=== PATIENT | male | born 1945 | race Caucasian/White ===

== ENCOUNTER → 2017-02-02 | Outpatient (CLI) | payer MEDICARE | LOC: RAD 15:25 | PROVIDERS: ATTEND Internal Medicine | DX: M51.17 Intervertebral disc disorders with radiculopathy, lumbosacral region (principal); M53.9 Dorsopathy, unspecified | CPT/HCPCS: 72148 ==

== ENCOUNTER → 2017-03-09 | Outpatient (CLI) | payer MEDICARE ==
[2017-03-09 10:36] LABS: ABSOLUTE EOSINOPHILS # (AUTO) 0.2 10^3/uL (0.0-0.6); ABSOLUTE LYMPHOCYTES (AUTO) 1.2 10^3/uL (0.5-4.7); ABSOLUTE MONOCYTES (AUTO) 0.5 10^3/uL (0.1-1.4); BASOPHILS % (AUTO) 0.6 % (0-2); EOSINOPHILS % (AUTO) 3.6 % (0-6); HEMATOCRIT 40.3 % (37.9-51.0); HEMOGLOBIN 13.6 g/dL (13.5-17.0); HGB HCT DIFFERENCE 0.5; LYMPHOCYTES % (AUTO) 20.3 % (13-45); MEAN CORPUSCULAR HEMOGLOBIN 29.7 pg (27.0-33.4); MEAN CORPUSCULAR HGB CONC 33.8 g/dL (32.0-36.0); MEAN CORPUSCULAR VOLUME 88 fl (80-97); MONOCYTES % (AUTO) 8.3 % (3-13); RED BLOOD COUNT 4.59 10^6/uL (4.35-5.55); SEGMENTED NEUTROPHILS % (AUTO) 67.2 % (42-78)
[2017-03-09 10:42] LABS: APPEARANCE,URINE SLIGHTLY-CLOUDY; BILIRUBIN,URINE NEGATIVE (NEGATIVE); GLUCOSE, URINE 50 mg/dL (NEGATIVE); KETONES,URINE TRACE mg/dL (NEGATIVE); LEUKOCYTE ESTERASE,URINE NEGATIVE (NEGATIVE); NITRITE,URINE NEGATIVE (NEGATIVE); PROTEIN,URINE NEGATIVE (NEGATIVE); URINE SPECIFIC GRAVITY 1.009
[2017-03-09 11:03] LABS: ANION GAP 12 (5-19); BLOOD UREA NITROGEN 8 mg/dL (7-20); CALCIUM 9.3 mg/dL (8.4-10.2); CARBON DIOXIDE 23 mmol/L (22-30); CHLORIDE 105 mmol/L (98-107); CREATININE RESULT 0.62 mg/dL (0.52-1.25); GLUCOSE 192 mg/dL (75-110); POTASSIUM 4.4 mmol/L (3.6-5.0)
--- NOTE | 2017-03-09 12:00 | RADIOLOGY REPORT (SQ) ---
EXAM DESCRIPTION: CHEST PA/LATERAL COMPLETED DATE/TIME: 03/09/2017 11:51 am REASON FOR STUDY: PRE OP COMPARISON: None. EXAM PARAMETERS: NUMBER OF VIEWS: two views TECHNIQUE: Digital Frontal and Lateral radiographic views of the chest acquired. RADIATION DOSE: NA LIMITATIONS: none FINDINGS: LUNGS AND PLEURA: No opacities, masses or pneumothorax. No pleural effusion. MEDIASTINUM AND HILAR STRUCTURES: No masses or contour abnormalities. HEART AND VASCULAR STRUCTURES: Heart normal size. No evidence for failure. BONES: No acute findings. HARDWARE: CABG. OTHER: No other significant finding. IMPRESSION: No acute findings in the chest. TECHNICAL DOCUMENTATION: JOB ID: [id number] [employer]- All Rights Reserved
--- NOTE | 2017-03-09 17:07 | EKG REPORT ---
SEVERITY:- NORMAL ECG - SINUS RHYTHM : Confirmed by: Flavio Champion 09-Mar-2017 17:06:29
== END ==
LOC: OD 09:46
PROVIDERS: ATTEND Orthopaedic Surgery
DX: Z01.810 Encounter for preprocedural cardiovascular examination (principal); Z01.812 Encounter for preprocedural laboratory examination; Z01.818 Encounter for other preprocedural examination; E11.9 Type 2 diabetes mellitus without complications; Z79.4 Long term (current) use of insulin
CPT/HCPCS: 36415; 71020; 80048; 81001; 83036; 85025; 87070; 93005; 93010

== ENCOUNTER 2017-03-28 05:26 | Day surgery (SDC) | payer MEDICARE ==
[~2017-03-28 05:26] MED LIST: CEFAZOLIN 2 GM/D5W RTU 2 GM/50 ML RTUPB IV PRN; LACTATED RINGERS 1000 ML IV PRN; LIDOCAINE 0.5% INJ-PF (5 MG/ML) 50 ML SDV SUBCUT PRN
[2017-03-28] MEDS ORDERED: DEXMEDETOMIDINE INJ 80 MCG/20 ML VIAL IV ONE (07:12)
[2017-03-28] MEDS ORDERED: PROPOFOL INJ 200 MG/20 ML VIAL IV ONE (07:12)
[2017-03-28] MEDS ORDERED: MIDAZOLAM 2 MG/2 ML INJ ONE (07:12)
[2017-03-28] MEDS ORDERED: FENTANYL CITRATE INJ/PF 250 MCG/5 ML AMPULE ONE (07:12)
[2017-03-28] MEDS ORDERED: EPHEDRINE SULFATE INJ 50 MG/1 ML AMPULE ONE (07:13)
[2017-03-28] MEDS ORDERED: KETAMINE HCL INJ 500 MG/10 ML VIAL ONE (07:14)
[2017-03-28] MEDS ORDERED: MEPERIDINE HCL/PF INJ 25 MG/1 ML DISP.SYRIN IV PRN (08:26)
[2017-03-28] MEDS ORDERED: DIPHENHYDRAMINE HCL 50 MG/ML VIAL IV PRN (08:26)
[2017-03-28] MEDS ORDERED: PROMETHAZINE HCL INJ 25 MG/1 ML VIAL IV PRN ×2 (08:26)
[2017-03-28] MEDS ORDERED: OXYCODONE-ACETAMINOPHEN 5-325 MG TABLET PO PRN ×2 (08:26)
[2017-03-28] MEDS ORDERED: MORPHINE SULFATE 10 MG/ML INJ IV PRN (08:26)
[2017-03-28] MEDS ORDERED: FENTANYL CITRATE INJ/PF 100 MCG/2 ML AMPUL IV PRN ×3 (08:26)
[2017-03-28] MEDS ORDERED: BUPIVACAINE HCL 0.5 % INJ/PF 30 ML SDV ONE (08:42)
[2017-03-28] MEDS ORDERED: BACITRACIN INJ 50,000 UNIT VIAL ONE (10:21)
[2017-03-28] MEDS ORDERED: BUPIVACAINE INJ/PF LIPOSOME/PF 266 MG/20 ML SDV ONE (10:21)
[2017-03-28] MEDS ORDERED: ONDANSETRON HCL INJ/PF 4 MG/2 ML SDV IV PRN (10:54)
[2017-03-28] MEDS ORDERED: OXYCODONE HCL IR 5 MG TABLET PO PRN (11:00)
[2017-03-28] MEDS ORDERED: METHOCARBAMOL INJ/PF 1000 MG/10 ML SDV IV ONE (11:15)
--- NOTE | 2017-03-28 11:44 | OPERATIVE REPORT E ---
Operative Report NAME: PAMELA MCGRATH : 1945 AGE: 71Y DATE OF SURGERY: 03/28/2017 ROOM: PREOPERATIVE DIAGNOSES: 1. Severe stenosis L4-L5 2. Herniated nucleus pulposus L4-L5. 3. Radiculitis L4-L5 bilaterally. 4. Degenerative disk disease. 5. Back pain. POSTOPERATIVE DIAGNOSES: 1. Severe stenosis L4-5 2. Herniated nucleus pulposus L4-5. 3. Radiculitis L4-5 bilaterally. 4. Degenerative disk disease. 5. Back pain. PROCEDURE: 1. L4 partial laminectomy. 2. L4-L5 left-sided microdiskectomy. ATTENDING PHYSICIAN: AMAN TAI M.D. CODE MACHINE OPERATOR: Caleb De Paz Physician Convertible Power Shovel Operator ANESTHESIA: General endotracheal intubation. ESTIMATED BLOOD LOSS: 375 mL. Patient was given back 200 mL in Cell Saver. INDICATIONS: Patient is a 71-year-old male with bilateral lower extremity numbness and weakness, difficulty in ambulation, and significant back pain. After discussion with the patient of the risks, indications, and alternatives including the risk of infection and bleeding, damage to nerves or blood vessels, the risk of dural tear and spinal headaches, the risk of continued back pain, the risk of needing further surgery, the patient understood these risks and wished to pursue the surgical intervention. OPERATIVE TECHNIQUE: The patient was brought into the room, placed under anesthesia, placed in the prone position on the on the radiolucent table with a Willian frame attachment. The middle and lower back were prepped and draped in the usual sterile fashion. The Willian frame was turned up to open up the interspace posteriorly. Under lateral C-arm fluoroscopy the skin is marked at L4-L5 and after completion of prepping and draping, a midline incision was carried down through the skin measuring approximately 2.5 inches. Dissection was carried down into the lumbodorsal fascia and dorsal fascia was incised on both sides of the spinous processes at L4-L5 and down to the lamina of L4 and L5. The posterior interspace was marked at L4-L5 using a Arun and lateral C-arm fluoroscopy is used to verify that level. Then, the spinous process at L4 is resected and the microscope is brought and under the microscope and through the assistance of Caleb De Paz and using the reyna and Kerrison, partial laminectomy was performed bilaterally and significant ligamentum flavum hypertrophy is resected and lateral recess is decompressed on the left side identifying the notable sizeable disk herniation. An annulotomy is performed under the microscope and many small and large degenerative piece of disk and end plate are resected which were occupying the majority of the dural space. Upon decompressing those pieces, the dura was found to rest more ventrally into position. Patient tolerated the procedure well. After that a Valsalva maneuver is performed by anesthesia noting that we irrigated the disk space to make sure there was no other loose pieces. Those were resected as well and then the Valsalva maneuver showed no epidural bleeders. No significant bleeding. No dural tear. No cerebral spinal fluid leakage. After that the wound is irrigated with a liter of bacitracin and irrigation. Exparel 1.3% 20 mL mixed with 20 mL of 0.5 Marcaine plain is injected into the deep and superficial soft tissues and the fascia is then reapproximated with 0 Vicryl, subcutaneous with 2-0 Vicryl, and the skin with subcuticular 3-0 Monocryl closure. The wounds are dressed in Benzoin, Steri-Strips, 4 x 4, and tape. The patient tolerated the procedure well. CONDITION: Stable. DISPOSITION: To recovery room. Please note this procedure could not have been done without Caleb De Paz in suction and retraction and working under the microscope. DICTATING PHYSICIAN: AMAN TAI M.D. [id number] PHY#: [id number] ID: [id number] JOB#: [id number] ACCT: [id number] cc:AMAN TAI M.D. >
[2017-03-28] MEDS ORDERED: SUCCINYLCHOLINE CHLORIDE INJ 200 MG/10 ML VIAL ONE (13:26)
[2017-03-28] MEDS ORDERED: KETOROLAC TROMETHAMINE 60 MG/2 ML SDV ONE (13:26)
[2017-03-28] MEDS ORDERED: DEXAMETHASONE SOD PHOSPHATE INJ 4 MG/1 ML VIAL ONE (13:26)
[2017-03-28] MEDS ORDERED: ONDANSETRON HCL INJ/PF 4 MG/2 ML SDV ONE (13:26)
[2017-03-28] MEDS ORDERED: LIDOCAINE 2% INJ-PF (20 MG/ML) 10 ML AMPUL ONE (13:26)
[2017-03-28] MEDS ORDERED: NEOSTIGMINE METHYLSULFATE 10 MG/10 ML VIAL ONE (13:26)
[2017-03-28] MEDS ORDERED: GLYCOPYRROLATE INJ 0.4 MG/2 ML VIAL ONE (13:26)
[2017-03-28] MEDS ORDERED: ROCURONIUM BROMIDE INJ 50 MG/5 ML VIAL IV ONE (13:26)
--- NOTE | 2017-03-28 13:28 | RADIOLOGY REPORT (SQ) ---
EXAM DESCRIPTION: NO CHG FLUORO; L SPINE 2 VIEWS COMPLETED DATE/TIME: 03/28/2017 1:00 pm REASON FOR STUDY: L 4-5 COMPARISON: None. FLUOROSCOPY TIME: Not recorded Images saved to PACS LIMITATIONS: None. PROCEDURE: 2 images were obtained with the C-arm. FINDINGS: On the 1st image a forceps delcid the spinous process of L4. On the 2nd image an instrumen t is directed toward the L4-5 disc space. IMPRESSION: Intraoperative images. COMMENT: PQRS 6045F: Fluoroscopy time of the procedure is documented in the report. TECHNICAL DOCUMENTATION: JOB ID: [id number] [employer]- All Rights Reserved
--- NOTE | 2017-03-28 13:28 | RADIOLOGY REPORT (SQ) ---
EXAM DESCRIPTION: NO CHG FLUORO; L SPINE 2 VIEWS COMPLETED DATE/TIME: 03/28/2017 1:00 pm REASON FOR STUDY: L 4-5 COMPARISON: None. FLUOROSCOPY TIME: Not recorded Images saved to PACS LIMITATIONS: None. PROCEDURE: 2 images were obtained with the C-arm. FINDINGS: On the 1st image a forceps delcid the spinous process of L4. On the 2nd image an instrumen t is directed toward the L4-5 disc space. IMPRESSION: Intraoperative images. COMMENT: PQRS 6045F: Fluoroscopy time of the procedure is documented in the report. TECHNICAL DOCUMENTATION: JOB ID: [id number] [employer]- All Rights Reserved
[2017-03-28 13:43] VITALS: BP 124/58
== END 2017-03-28 12:55 | disposition home or self-care (01) ==
LOC: OROUT 05:26 → EDSTATUS 07:30 → OROUT 12:55
PROVIDERS: ATTEND Orthopaedic Surgery
PROC: 0ST20ZZ Resection of Lumbar Vertebral Disc, Open Approach (ICD-10-PCS; principal; 2017-03-28 07:30)
DX: M54.16 Radiculopathy, lumbar region (principal); M48.06 Spinal stenosis, lumbar region; M51.26 Other intervertebral disc displacement, lumbar region; M51.36 Other intervertebral disc degeneration, lumbar region; E11.9 Type 2 diabetes mellitus without complications; I25.10 Atherosclerotic heart disease of native coronary artery without angina pectoris; I10 Essential (primary) hypertension; M19.90 Unspecified osteoarthritis, unspecified site; E66.9 Obesity, unspecified; Z79.4 Long term (current) use of insulin; Z68.32 Body mass index [BMI] 32.0-32.9, adult
CPT/HCPCS: 82962; 72100; 63030; J2250; J3490 ×5; J1100; J1885; J3010; J2800; J0330; J2405; J2704; J0690; C9290; 630

== ENCOUNTER 2017-03-29 23:50 | Emergency (ER) | payer MEDICARE ==
--- NOTE | 2017-03-30 00:49 | ER Document Report ---
ED General - General Chief Complaint: Back Injury Stated Complaint: WEAK LEGS Time Seen by Provider: 03/29/17 23:54 Notes: Patient is a 71-year-old male with a laminectomy and microdiscectomy performed on 03/28 who presents after he had a mechanical fall earlier this morning landing onto his buttocks. Patient states that since that time he has had increased pain to the low back and increased difficulty with ambulation although notes that he still able to do so. He came to the emergency department tonight as he was unable to get up into his bed after walking there using his walker. Notes that when he was loaded into the structure in the ambulance he developed bilateral lower extremity paresthesias without any focal weakness or numbness. He denies any bowel or bladder incontinence. No urinary retention. Notes of the paresthesias are to the inner thighs bilaterally. Nothing improves or worsens his symptoms. He is taking gabapentin for his pain. He has not contacted his surgeon regarding today's episode. TRAVEL OUTSIDE OF THE [place] IN LAST 30 DAYS: No - Related Data Allergies/Adverse Reactions: No Known Allergies Allergy (Verified 03/30/17 00:18) Past Medical History - General Information source: Patient - Social History Smoking Status: Never Smoker Chew tobacco use (# tins/day): No Frequency of alcohol use: None Drug Abuse: None Lives with: Spouse/Significant other Family History: Reviewed & Not Pertinent Patient has suicidal ideation: No Patient has homicidal ideation: No - Past Medical History Cardiac Medical History: Reports: Hx Coronary Artery Disease, Hx Hypercholesterolemia, Hx Hypertension Denies: Hx Atrial Fibrillation, Hx Congestive Heart Failure, Hx Heart Attack , Hx Peripheral Vascular Disease, Hx Pulmonary Embolism, Hx Heart Murmur Pulmonary Medical History: Denies: Hx Asthma, Hx Bronchitis, Hx COPD, Hx Pneumonia, Hx Respiratory Failure, Hx Sleep Apnea, Hx Tuberculosis Neurological Medical History: Reports: Hx Cerebrovascular Accident - Right- sided hemiaplagia. Denies: Hx Seizures Endocrine Medical History: Reports: Hx Diabetes Mellitus Type 2. Denies: Hx Graves' Disease, Hx Hyperthyroidism, Hx Hypothyroidism Renal/ Medical History: Denies: Hx Peritoneal Dialysis Malignancy Medical History: Denies Hx Lung Cancer GI Medical History: Reports: Hx Gastroesophageal Reflux Disease, Hx Hiatal Hernia, Hx Ulcer. Denies: Hx Crohn's Disease, Hx Hepatitis, Hx Irritable Bowel , Hx Liver Failure Musculoskeltal Medical History: Reports Hx Arthritis, Denies Hx Fibromyalgia, Denies Hx Muscular Dystrophy Psychiatric Medical History: Reports: Hx Depression, Hx Post Traumatic Stress Disorder Denies: Hx Bipolar Disorder, Hx Schizophrenia Traumatic Medical History: Reports: Hx Fractures - RT THIRD TOE Infectious Medical History: Denies: Hx Hepatitis Past Surgical History: Reports: Hx Cardiac Catheterization, Hx Cardiac Surgery - cabg, stents, Hx Coronary Artery Bypass Graft - QUAD, Hx Open Heart Surgery - 1988, Hx Orthopedic Surgery - anterior neck dic repair , lower back lumber, Hx Tonsillectomy. Denies: Hx Appendectomy, Hx Bowel Surgery, Hx Cholecystectomy, Hx Colostomy, Hx Gastric Bypass Surgery, Hx Herniorrhaphy, Hx Pacemaker - Immunizations Hx Pneumococcal Vaccination: 07/12/15 Review of Systems - Review of Systems Notes: Constitutional: Negative for fever. HENT: Negative for sore throat. Eyes: Negative for visual changes. Cardiovascular: Negative for chest pain. Respiratory: Negative for shortness of breath. Gastrointestinal: Negative for abdominal pain, vomiting or diarrhea. Genitourinary: Negative for dysuria. Musculoskeletal: Positive for back pain. Skin: Negative for rash. Neurological: Negative for headaches, weakness or numbness. 10 point ROS negative except as marked above and in HPI. Physical Exam - Vital signs Vitals: Temp Pulse Resp BP Pulse Ox 100.7 F H 74 20 134/49 H 98 03/30/17 00:14 03/30/17 00:14 03/30/17 00:14 03/30/17 00:14 03/30/17 00:14 Interpretation: Febrile Notes: PHYSICAL EXAMINATION: GENERAL: Well-appearing, well-nourished and in no acute distress. HEAD: Atraumatic, normocephalic. EYES: Pupils equal round and reactive to light, extraocular movements intact, sclera anicteric, conjunctiva are normal. ENT: nares patent, oropharynx clear without exudates. Moist mucous membranes. NECK: Normal range of motion, supple without lymphadenopathy LUNGS: Breath sounds clear to auscultation bilaterally and equal. No wheezes rales or rhonchi. HEART: Regular rate and rhythm without murmurs ABDOMEN: Soft, nontender, normoactive bowel sounds. No guarding, no rebound. No masses appreciated. EXTREMITIES: Normal range of motion, no pitting or edema. No cyanosis. Back: There is a midline lumbar incision without any evidence of opening, Steri- Strips are in place. NEUROLOGICAL: 5 out of 5 strength both distally and proximally bilateral lower extremities. 2+ patellar reflexes bilaterally. No clonus. Sensation grossly intact in the bilateral lower extremities. PSYCH: Normal mood, normal affect. SKIN: Warm, Dry, normal turgor, no rashes or lesions noted. Course - Re-evaluation Re-evalutation: 03/30/17 01:02 Patient presents with difficulty ambulating, paresthesias to the bilateral lower extremities after a recent laminectomy and microdiscectomy in the lumbar spine on 03/28. Patient has absolutely no focal neurologic deficits on examination. He has 5 out of 5 strength both distally and proximally. 2+ patellar reflexes bilaterally. No clonus. Sensory is intact in all distributions bilaterally. He has had no bowel or bladder incontinence. Denies any urinary retention and has gone to the bathroom without difficulty since the fall. The wound on the back is intact, Steri-Strips are unmoved and there is no evidence of an opening of the wound. Routine vitals here do show a temperature of 100.5 which would not be unexpected within 24 hours of surgery. There is no evidence of infection to the site without any purulent drainage or swelling. I have asked the family to please recheck the temperature tomorrow and discuss with the surgeon so that they are aware of this low-grade postoperative temperature. I do not believe there is any indication for further imaging or labs at this time. I have discussed this case with the physician regional operations director for the group, Grisel Ann. She is in agreement that based on patient's history, neurologic exam and the appearance of the surgical wound there is no indication for further imaging or emergent evaluation by the surgeon. I have discussed this with the family at the left at the bedside. Patient will be provided medical transport home due to the 's concerns about her ability to assist the patient with ambulation. - Vital Signs Vital signs: Temp Pulse Resp BP Pulse Ox 100.7 F H 74 20 134/49 H 98 03/30/17 00:14 03/30/17 00:14 03/30/17 00:14 03/30/17 00:14 03/30/17 00:14 Discharge - Discharge Clinical Impression: Low back pain Qualifiers: Chronicity: acute Back pain laterality: bilateral Sciatica presence: without sciatica Qualified Code(s): M54.5 - Low back pain Fall Qualifiers: Encounter type: initial encounter Qualified Code(s): W19.XXXA - Unspecified fall, initial encounter Condition: Good Disposition: HOME, SELF-CARE Additional Instructions: Please contact your surgeon in the AM regarding boy's ED visit. Please return to the emergency department immediately if you lose control of your bowel or bladder, your unable to urinate, you develop weakness or loss of sensation in one or both legs, or any other symptoms that are concerning to you. Referrals: MARK MALDONADO MD [Primary Care Provider] - Follow up as needed
[2017-03-30 01:51] VITALS: BP 143/56
== END 2017-03-30 02:27 | disposition home or self-care (01) ==
LOC: ER 23:50
DX: M54.5 Low back pain (principal); W17.89XA Other fall from one level to another, initial encounter; Z98.890 Other specified postprocedural states; R50.9 Fever, unspecified; R20.9 Unspecified disturbances of skin sensation; I25.10 Atherosclerotic heart disease of native coronary artery without angina pectoris; I10 Essential (primary) hypertension; E11.9 Type 2 diabetes mellitus without complications; Z95.1 Presence of aortocoronary bypass graft; Z98.61 Coronary angioplasty status
CPT/HCPCS: 99284

== ENCOUNTER 2017-03-30 13:09 | Emergency (ER) | payer MEDICARE ==
--- NOTE | 2017-03-30 13:34 | ER Document Report ---
ED Extremity Problem, Lower - General Mode of Arrival: Medic Information source: Patient TRAVEL OUTSIDE OF THE [place] IN LAST 30 DAYS: No - HPI Patient complains to provider of: Other - weakness Associated symptoms: Other - See above <JACINDA CHEEK - Last Filed: 03/30/17 13:42> <MOY DOMINGUEZ - Last Filed: 03/30/17 15:23> <ALONSO MCKEON - Last Filed: 03/30/17 21:16> - General Chief Complaint: Weakness Stated Complaint: weakness Notes: Patient is a 71 year old male, with a past medical history including laminectomy and microdiscectomy performed on 03/28, who presents to the emergency department via EMS for weakness in his legs. Patient was seen here yesterday for the same complaint. Patient fell on his buttocks yesterday morning and had a second fall last night after he lost the strength in his legs. Patient went home early this morning, his surgeon Dr. Miller called today and told him he needed an emergent MRI. Patient also complains of numbness in his legs. (JACINDA CHEEK) - Related Data Allergies/Adverse Reactions: No Known Allergies Allergy (Verified 03/30/17 00:18) Past Medical History - General Information source: Patient - Social History Smoking Status: Never Smoker Chew tobacco use (# tins/day): No Frequency of alcohol use: None Drug Abuse: None Family History: Reviewed & Not Pertinent Patient has suicidal ideation: No Patient has homicidal ideation: No - Past Medical History Cardiac Medical History: Reports: Hx Coronary Artery Disease, Hx Hypercholesterolemia, Hx Hypertension Neurological Medical History: Reports: Hx Cerebrovascular Accident - Right- sided hemiaplagia Endocrine Medical History: Reports: Hx Diabetes Mellitus Type 2 GI Medical History: Reports: Hx Gastroesophageal Reflux Disease, Hx Hiatal Hernia, Hx Ulcer Musculoskeltal Medical History: Reports Hx Arthritis Psychiatric Medical History: Reports: Hx Depression, Hx Post Traumatic Stress Disorder Traumatic Medical History: Reports: Hx Fractures - RT THIRD TOE Past Surgical History: Reports: Hx Cardiac Catheterization, Hx Cardiac Surgery - cabg, stents, Hx Coronary Artery Bypass Graft - QUAD, Hx Open Heart Surgery - 1988, Hx Orthopedic Surgery - anterior neck dic repair , lower back lumber, Hx Tonsillectomy - Immunizations Hx Diphtheria, Pertussis, Tetanus Vaccination: Yes Hx Pneumococcal Vaccination: 07/12/15 <JACINDA CHEEK - Last Filed: 03/30/17 13:42> Review of Systems - Review of Systems Constitutional: See HPI, Weakness EENT: No symptoms reported Cardiovascular: No symptoms reported Respiratory: No symptoms reported Gastrointestinal: No symptoms reported Genitourinary: No symptoms reported Male Genitourinary: No symptoms reported Musculoskeletal: No symptoms reported Skin: No symptoms reported Hematologic/Lymphatic: No symptoms reported Neurological/Psychological: See HPI, Numbness -: Yes All other systems reviewed and negative <CHEEKJACINDA - Last Filed: 03/30/17 13:42> Physical Exam - Vital signs Interpretation: Normal - General General appearance: Appears well, Alert - HEENT Head: Normocephalic, Atraumatic - Respiratory Respiratory status: No respiratory distress Chest status: Nontender Breath sounds: Normal Chest palpation: Normal - Cardiovascular Rhythm: Regular Heart sounds: Normal auscultation Murmur: No - Extremities General upper extremity: Normal inspection General lower extremity: Edema - chronic pitting edema bilaterally - Neurological Neuro grossly intact: Yes Cognition: Normal Orientation: AAOx4 [place] Coma Scale Eye Opening: Spontaneous Patti Coma Scale Verbal: Oriented Patti Coma Scale Motor: Obeys Commands Patti Coma Scale Total: 15 Speech: Normal Additional motor exam normals: Dorsiflexion - normal Sensory: Other - altered sensation to medial aspect of calves and thighs - Psychological Associated symptoms: Normal affect, Normal mood - Skin Skin Temperature: Warm Skin Moisture: Dry Skin Color: Normal <HAMJACINDA - Last Filed: 03/30/17 13:42> Course - Laboratory Result Diagrams: 03/30/17 14:00 03/30/17 14:50 <MOY DOMINGUEZ - Last Filed: 03/30/17 15:23> - Laboratory Result Diagrams: 03/30/17 14:00 03/30/17 14:50 <ALONSO MCKEON - Last Filed: 03/30/17 21:16> - Vital Signs Vital signs: Temp Pulse Resp BP Pulse Ox 98.7 F 85 16 168/94 H 94 03/30/17 20:59 03/30/17 20:59 03/30/17 20:59 03/30/17 20:59 03/30/17 20:59 - Laboratory Laboratory results interpreted by me: 03/30/17 03/30/17 03/30/17 14:00 14:15 14:50 Hgb 13.2 L Lymphocytes % 11.7 L Sodium 136.0 L Glucose 193 H Total Bilirubin 1.7 H Total Protein 5.9 L Urine Protein 30 H Urine Glucose (UA) 150 H Urine Ketones 25 H Discharge <JACINDA CHEEK - Last Filed: 03/30/17 13:42> <MOY DOMINGUEZ - Last Filed: 03/30/17 15:23> <ALONSO MCKEON - Last Filed: 03/30/17 21:16> - Discharge Clinical Impression: Paresthesia of both lower extremities Low back pain Qualifiers: Chronicity: acute Back pain laterality: unspecified Sciatica presence: with sciatica Sciatica laterality: sciatica laterality unspecified Qualified Code(s) : M54.40 - Lumbago with sciatica, unspecified side Condition: Stable Disposition: HOME, SELF-CARE Additional Instructions: Follow-up with your orthopedic surgeon, Dr. Obregon. Scribe Documentation - Scribe Written by Nel:: nel Lazo, 03/30/17, 1929 acting as scribe for DrMason:: Leticia <JACINDA CHEEK - Last Filed: 03/30/17 13:42>
[2017-03-30 14:29] LABS: ABSOLUTE BASOPHILS # (AUTO) 0.1 10^3/uL (0.0-0.2); ABSOLUTE LYMPHOCYTES (AUTO) 1.1 10^3/uL (0.5-4.7); ABSOLUTE MONOCYTES (AUTO) 0.9 10^3/uL (0.1-1.4); BASOPHILS % (AUTO) 0.6 % (0-2); EOSINOPHILS % (AUTO) 0.3 % (0-6); HEMATOCRIT 39.5 % (37.9-51.0); HEMOGLOBIN 13.2 g/dL (13.5-17.0); HGB HCT DIFFERENCE 0.1; LYMPHOCYTES % (AUTO) 11.7 % (13-45); MEAN CORPUSCULAR HEMOGLOBIN 29.3 pg (27.0-33.4); MEAN CORPUSCULAR HGB CONC 33.3 g/dL (32.0-36.0); MEAN CORPUSCULAR VOLUME 88 fl (80-97); MONOCYTES % (AUTO) 10.4 % (3-13); RED BLOOD COUNT 4.49 10^6/uL (4.35-5.55); WHITE BLOOD COUNT 9.1 10^3/uL (4.0-10.5)
[2017-03-30 14:48] LABS: APPEARANCE,URINE CLEAR; BILIRUBIN,URINE NEGATIVE (NEGATIVE); GLUCOSE, URINE 150 mg/dL (NEGATIVE); KETONES,URINE 25 mg/dL (NEGATIVE); LEUKOCYTE ESTERASE,URINE NEGATIVE (NEGATIVE); NITRITE,URINE NEGATIVE (NEGATIVE); PROTEIN,URINE 30 mg/dL (NEGATIVE); URINE SPECIFIC GRAVITY 1.017; UROBILINOGEN,URINE NEGATIVE mg/dL (<2.0)
[2017-03-30 14:49] LABS: RBC,URINE NONE SEEN /HPF; WBC,URINE NONE SEEN /HPF
[2017-03-30 15:16] LABS: ALANINE AMINOTRANSFERASE 40 U/L (21-72); ALBUMIN 3.5 g/dL (3.5-5.0); ALKALINE PHOSPHATASE 48 U/L (38-126); ANION GAP 10 (5-19); ASPARTATE AMINO TRANSFERASE 20 U/L (17-59); BILIRUBIN,DIRECT 0.3 mg/dL (0.0-0.4); BILIRUBIN,TOTAL 1.7 mg/dL (0.2-1.3); BLOOD UREA NITROGEN 9 mg/dL (7-20); CALCIUM 8.6 mg/dL (8.4-10.2); CARBON DIOXIDE 25 mmol/L (22-30); CHLORIDE 101 mmol/L (98-107); GLUCOSE 193 mg/dL (75-110); POTASSIUM 4.4 mmol/L (3.6-5.0); TOTAL PROTEIN 5.9 g/dL (6.3-8.2)
--- NOTE | 2017-03-30 16:50 | RADIOLOGY REPORT (SQ) ---
EXAM DESCRIPTION: L SPINE 2 VIEWS COMPLETED DATE/TIME: 03/30/2017 4:40 pm REASON FOR STUDY: MRI requests to look for hardware COMPARISON: None. NUMBER OF VIEWS: Two views. TECHNIQUE: AP and lateral radiographic images acquired of the lumbar spine. LIMITATIONS: None. FINDINGS: MINERALIZATION: Osteopenia. SEGMENTATION: Normal. No transitional anatomy. ALIGNMENT: Normal. VERTEBRAE: Maintained height. No fracture or worrisome bone lesion. DISCS: The disc spaces L3-4 and L4-5 are narrowed. Osteophytes are present at these levels. POSTERIOR ELEMENTS: Hypertrophic facet changes are present from L3-S1. HARDWARE: None in the spine. PARASPINAL SOFT TISSUES: Normal. PELVIS: Intact as visualized. No fractures or worrisome bone lesions. SI joints intact. OTHER: No other significant finding. IMPRESSION: Degenerative disc disease and spondylosis with facet arthropathy TECHNICAL DOCUMENTATION: JOB ID: [id number]- All Rights Reserved
--- NOTE | 2017-03-30 18:12 | RADIOLOGY REPORT (SQ) ---
EXAM DESCRIPTION: MRI LUMBAR SPINE COMBO COMPLETED DATE/TIME: 03/30/2017 5:26 pm REASON FOR STUDY: recent surg, fall, weak and numb COMPARISON: 02/02/2017 TECHNIQUE: Sagittal and Axial imaging includes T1, T1 post gadolinium, T2, STIR and gradient echo se quences. Coronal T2/HASTE imaging. CONTRAST TYPE AND DOSE: 20 mL Multihance. RENAL FUNCTION: GFR > 60. LIMITATIONS: None. FINDINGS: Since the prior examination there has been interval resection of the 11 mm left paracentra l disc protrusion that was seen at the L4-5 level. Expected Postsurgical changes and enhancement fro m prior partial discectomy around this level are present in the epidural space without a defined foca l epidural fluid collection. Reactive marrow changes at the L4-5 level were present on the preoperat rodrigo scan. No significant fluid signal is present at the L4-5 disc. Posterior Postsurgical changes f rom spinous process and laminar resection is present at the L4 level. Remaining degenerative changes and stenoses at the L3-4, L4-5 and L5-S1 levels appears otherwise similar to the preoperative study. OTHER: No other significant findings. IMPRESSION: Since the prior examination there has been interval resection of the 11 mm left paracent ral disc protrusion that was seen at the L4-5 level. Expected Postsurgical changes and enhancement f rom prior partial discectomy around this level are present in the epidural space without a defined fo elda epidural fluid collection. Reactive marrow changes at the L4-5 level were present on the preoper ative scan. No significant fluid signal is present at the L4-5 disc. Posterior Postsurgical changes from spinous process and laminar resection is present at the L4 level. Remaining degenerative luna es and stenoses at the L3-4, L4-5 and L5-S1 levels appears otherwise similar to the preoperative stud y. Infection cannot be excluded on an imaging basis and should be further interrogated clinically if there is high suspicion. TECHNICAL DOCUMENTATION: JOB ID: [id number]- All Rights Reserved
--- NOTE | 2017-03-30 21:14 | ER Document Report ---
Doctor's Note Notes: 03/30/17 21:13 I received a call from this patient's orthopedic surgeon who had received the MRI results from radiology. I also reviewed the MRI report. Based upon this conversation and my review of the report, the patient does not have an acute process that will result in a permanent neurologic deficit or injury. Basically the report shows a nonacute, normal appearing postsurgical MRI There being no indications for admitting the patient, he is going to be discharged home. Transport will be arranged to take him home.
[2017-03-30 23:00] VITALS: BP 117/44
== END 2017-03-30 23:20 | disposition home or self-care (01) ==
LOC: ER 13:09
DX: R20.8 Other disturbances of skin sensation (principal); M54.40 Lumbago with sciatica, unspecified side; R53.1 Weakness; I25.10 Atherosclerotic heart disease of native coronary artery without angina pectoris; E78.00 Pure hypercholesterolemia, unspecified; I10 Essential (primary) hypertension; I69.951 Hemiplegia and hemiparesis following unspecified cerebrovascular disease affecting right dominant side; E11.9 Type 2 diabetes mellitus without complications; Z95.1 Presence of aortocoronary bypass graft
CPT/HCPCS: 99285; 36415; 82962; 85025; 80053; 81001; 72158; 72100; A9577

== ENCOUNTER → 2017-11-30 | Outpatient (CLI) | payer MEDICARE ==
[2017-11-30 09:04] LABS: ABSOLUTE EOSINOPHILS # (AUTO) 0.2 10^3/uL (0.0-0.6); ABSOLUTE LYMPHOCYTES (AUTO) 1.1 10^3/uL (0.5-4.7); ABSOLUTE MONOCYTES (AUTO) 0.5 10^3/uL (0.1-1.4); ABSOLUTE NEUT (AUTO) 3.5 10^3/uL (1.7-8.2); BASOPHILS % (AUTO) 0.8 % (0-2); EOSINOPHILS % (AUTO) 3.7 % (0-6); HEMATOCRIT 38.4 % (37.9-51.0); HEMOGLOBIN 12.9 g/dL (13.5-17.0); LYMPHOCYTES % (AUTO) 21.1 % (13-45); MEAN CORPUSCULAR HEMOGLOBIN 28.7 pg (27.0-33.4); MEAN CORPUSCULAR HGB CONC 33.6 g/dL (32.0-36.0); MEAN CORPUSCULAR VOLUME 86 fl (80-97); MONOCYTES % (AUTO) 8.9 % (3-13); PLATELET COUNT 162 10^3/uL (150-450); RED BLOOD COUNT 4.48 10^6/uL (4.35-5.55); RED CELL DISTRIBUTION WIDTH 14.2 % (11.5-14.0); SEGMENTED NEUTROPHILS % (AUTO) 65.5 % (42-78); TOTAL CELLS COUNTED % (AUTO) 100 %; WHITE BLOOD COUNT 5.3 10^3/uL (4.0-10.5)
[2017-11-30 09:31] LABS: ALANINE AMINOTRANSFERASE 46 U/L (21-72); ALBUMIN 4.1 g/dL (3.5-5.0); ALKALINE PHOSPHATASE 55 U/L (38-126); ANION GAP 10 (5-19); ASPARTATE AMINO TRANSFERASE 29 U/L (17-59); BILIRUBIN,DIRECT 0.1 mg/dL (0.0-0.4); BILIRUBIN,TOTAL 0.8 mg/dL (0.2-1.3); BLOOD UREA NITROGEN 8 mg/dL (7-20); CALCIUM 9.2 mg/dL (8.4-10.2); CARBON DIOXIDE 26 mmol/L (22-30); CHLORIDE 106 mmol/L (98-107); GLUCOSE 140 mg/dL (75-110); POTASSIUM 4.2 mmol/L (3.6-5.0); SODIUM 142.4 mmol/L (137-145); TOTAL PROTEIN 5.8 g/dL (6.3-8.2); TRIGLYCERIDES 116 mg/dL (<150)
[2017-11-30 09:42] LABS: DIRECT LDL 63 mg/dL (<100)
== END ==
LOC: OD 07:34
PROVIDERS: ATTEND Internal Medicine
DX: I25.10 Atherosclerotic heart disease of native coronary artery without angina pectoris (principal); R60.9 Edema, unspecified; E11.9 Type 2 diabetes mellitus without complications; E78.5 Hyperlipidemia, unspecified
CPT/HCPCS: 36415; 80053; 80061; 82043; 83036; 83735; 84443; 85025

== ENCOUNTER → 2017-12-24 | Outpatient (CLI) | payer MEDICARE ==
--- NOTE | 2017-12-24 16:42 | RADIOLOGY REPORT (SQ) ---
EXAM DESCRIPTION: CAROTID DOPPLER COMPLETED DATE/TIME: 12/24/2017 4:20 pm REASON FOR STUDY: DIZZINESS R42 DIZZINESS AND GIDDINESS R29.90 UNSPECIFIED SYMPTOMS AND SIGNS INVO LVING THE NERVOUS COMPARISON: None. TECHNIQUE: Grayscale ultrasound, Doppler velocity and spectra, and color Doppler images acquired of the extra-cranial carotid and vertebral arteries. Images stored on PACS. LIMITATIONS: None. FINDINGS: RIGHT CAROTID CCA Velocities: Within normal limits. ICA Velocities Peak systolic 1.12 m/s. End diastolic 0.25 m/s. Proximal ICA/CCA peak systolic ratio 1.6. Spectra normal. No significant plaque. LEFT CAROTID CCA Velocities: Within normal limits. ICA Velocities Peak systolic 0.99 m/s. End diastolic 0.18 m/s. Proximal ICA/CCA peak systolic ratio 1.1. Spectra normal. No significant plaque. VERTEBRAL ARTERIES: Antegrade flow. Normal waveforms. SUBCLAVIAN ARTERIES: No finding. OTHER: No other significant finding. IMPRESSION: NO HEMODYNAMICALLY SIGNIFICANT STENOSIS. COMMENT: Quality ID #[id number]: Velocity criteria are extrapolated from the diameter data as defined by t he Society of Radiologists in Ultrasound Consensus Conference. Radiology 2003: 229; 340-346. TECHNICAL DOCUMENTATION: JOB ID: [id number] [employer]- All Rights Reserved Reading location - IP/workstation name: [email or web address]
--- NOTE | 2017-12-24 18:14 | RADIOLOGY REPORT (SQ) ---
EXAM DESCRIPTION: MRI HEAD COMBO COMPLETED DATE/TIME: 12/24/2017 4:59 pm REASON FOR STUDY: R29.90 UNSPECIFIED SYMPTOMS AND SIGNS INVOLVING THE NERVOUS SYSTEM R42 DIZZ R42 D IZZINESS AND GIDDINESS R29.90 UNSPECIFIED SYMPTOMS AND SIGNS INVOLVING THE NERVOUS COMPARISON: No previous TECHNIQUE: Multiplanar imaging includes noncontrasted T1, T2, FLAIR, diffusion with ADC map and post gadolinium contrast T1 sequences. Images stored on PACS. CONTRAST TYPE AND DOSE: 20 mL Multihance. RENAL FUNCTION: GFR > 60. LIMITATIONS: None. FINDINGS: ANATOMY: No developmental anomalies. Normal vascular flow voids. Pituitary fossa normal. CSF SPACES: Normal in size and contour. No hemorrhage. CEREBRUM: Diffusion-weighted images are positive for multiple small foci of nonhemorrhagic acute isch emic change in the right frontal white matter and bilateral deep parietal periventricular white matte r. No large territory cerebral infarct. No intracranial hemorrhage, mass effect, or midline shift. The re is spotty increased FLAIR/T2 signal from mild gliosis along perivascular spaces or mild chronic sm all vessel ischemic change in the hemispheric white matter. POSTERIOR FOSSA: No signal alteration. No hemorrhage. No edema, masses, or mass effect. Internal ginny tory canals, cerebellopontine angles, mastoids normal. No enhancing lesions. No abnormal enhancement post contrast. DIFFUSION IMAGING: Negative for acute or subacute infarction. ORBITS: No masses. Globes normal. PARANASAL SINUSES: No fluid levels. Mucosa normal. OTHER: No other significant finding. IMPRESSION: Small nonhemorrhagic infarcts in the right frontal and biparietal deep periventricular w leigh matter. Mild chronic small vessel ischemic change in the bifrontal and biparietal white matter. EVIDENCE OF ACUTE STROKE: Yes COMMENT: Pertinent findings on the imaging study reported as a CRITICAL RESULT to YISEL RUEDA MD at18:08 on 12/24/2017. Category of Critical Result: Acute infarcts TECHNICAL DOCUMENTATION: JOB ID: [id number] [employer]- All Rights Reserved Reading location - IP/workstation name: [email or web address]
== END ==
LOC: SP 13:37
PROVIDERS: ATTEND Internal Medicine Cardiovascular Disease
DX: I63.9 Cerebral infarction, unspecified (principal); R42 Dizziness and giddiness
CPT/HCPCS: 70553; 93880

== ENCOUNTER → 2018-11-21 | Outpatient (CLI) | payer MEDICARE ==
[2018-11-21 08:35] LABS: ABSOLUTE EOSINOPHILS # (AUTO) 0.2 10^3/uL (0.0-0.6); ABSOLUTE MONOCYTES (AUTO) 0.5 10^3/uL (0.1-1.4); BASOPHILS % (AUTO) 0.6 % (0-2); EOSINOPHILS % (AUTO) 3.3 % (0-6); HEMATOCRIT 32.5 % (37.9-51.0); HEMOGLOBIN 10.7 g/dL (13.5-17.0); LYMPHOCYTES % (AUTO) 17.2 % (13-45); MEAN CORPUSCULAR HEMOGLOBIN 26.9 pg (27.0-33.4); MEAN CORPUSCULAR HGB CONC 33.1 g/dL (32.0-36.0); MEAN CORPUSCULAR VOLUME 81 fl (80-97); MONOCYTES % (AUTO) 8.3 % (3-13); PLATELET COUNT 195 10^3/uL (150-450); RED BLOOD COUNT 3.99 10^6/uL (4.35-5.55); RED CELL DISTRIBUTION WIDTH 15.9 % (11.5-14.0); SEGMENTED NEUTROPHILS % (AUTO) 70.6 % (42-78); TOTAL CELLS COUNTED % (AUTO) 100 %; WHITE BLOOD COUNT 5.6 10^3/uL (4.0-10.5)
[2018-11-21 09:02] LABS: ALANINE AMINOTRANSFERASE 49 U/L (21-72); ALKALINE PHOSPHATASE 61 U/L (38-126); ANION GAP 9 (5-19); ASPARTATE AMINO TRANSFERASE 31 U/L (17-59); BILIRUBIN,DIRECT 0.1 mg/dL (0.0-0.4); BILIRUBIN,TOTAL 0.9 mg/dL (0.2-1.3); BLOOD UREA NITROGEN 11 mg/dL (7-20); CALCIUM 8.9 mg/dL (8.4-10.2); CARBON DIOXIDE 27 mmol/L (22-30); CHLORIDE 104 mmol/L (98-107); GLUCOSE 198 mg/dL (75-110); POTASSIUM 4.5 mmol/L (3.6-5.0); SODIUM 140.2 mmol/L (137-145); TRIGLYCERIDES 192 mg/dL (<150)
[2018-11-21 09:18] LABS: DIRECT LDL 55 mg/dL (<100)
[2018-11-21 09:23] LABS: VLDL CHOLESTEROL 38.4 mg/dL (10-31)
[2018-11-22 10:39] LABS: CREATININE URINE 141.5 mg/dL (Not Estab.); MICROALBUMIN URINE 11.3 ug/mL (Not Estab.)
== END ==
LOC: OD 07:51
PROVIDERS: ATTEND Internal Medicine
DX: E11.8 Type 2 diabetes mellitus with unspecified complications (principal); I25.119 Atherosclerotic heart disease of native coronary artery with unspecified angina pectoris; I10 Essential (primary) hypertension; E78.5 Hyperlipidemia, unspecified; R53.83 Other fatigue
CPT/HCPCS: 36415; 80053; 80061; 82043; 82570; 83036; 84443; 85025

== ENCOUNTER → 2019-11-17 | Outpatient (CLI) | payer MEDICARE ==
--- NOTE | 2019-11-17 17:00 | RADIOLOGY REPORT (SQ) ---
EXAM DESCRIPTION: MRI HEAD COMBO COMPLETED DATE/TIME: 11/17/2019 2:18 pm REASON FOR STUDY: HEARING LOSS H91.90 UNSPECIFIED HEARING LOSS, UNSPECIFIED EAR COMPARISON: None. TECHNIQUE: Multiplanar imaging includes noncontrasted T1, T2, FLAIR, Diffusion with ADC map and post gadolinium contrast T1 sequences. Images stored on PACS. CONTRAST TYPE AND DOSE: 20 mL Dotarem RENAL FUNCTION: Not indicated. ACR Type II contrast agent associated with few, if any, unconfounded cases of NSF LIMITATIONS: None. FINDINGS: ANATOMY: No anomalies. Normal vascular flow voids. Pituitary fossa normal. CSF SPACES: Atrophy-induced prominence of CSF spaces and ventricles. CEREBRUM: High-signal intensity lesions scattered throughout the white matter on FLAIR imaging with d istribution suggesting chronic micro-vascular ischemic change. No evidence of hemorrhage, mass, extra axial fluid collection or acute ischemic change. No enhancing lesions. POSTERIOR FOSSA: No signal alteration. No hemorrhage. No edema, masses, or mass effect. Internal ginny tory canals, cerebello-pontine angles, mastoids normal. No enhancing lesions. ORBITS: No masses. Globes normal. PARANASAL SINUSES: No fluid levels. Mucosa normal. DIFFUSION: Normal. No evidence of recent infarct. OTHER: No other significant finding. IMPRESSION: Normal IAC's. No acute findings in the brain. EVIDENCE OF ACUTE STROKE: NO. TECHNICAL DOCUMENTATION: JOB ID: [id number] [employer]- All Rights Reserved Reading location - IP/workstation name: [email or web address]
== END ==
LOC: RAD 13:08
PROVIDERS: ATTEND Otolaryngology
DX: H91.90 Unspecified hearing loss, unspecified ear (principal)
CPT/HCPCS: 82565; 70553; A9576

== ENCOUNTER → 2020-09-01 | Outpatient (CLI) | payer MEDICARE ==
[2020-09-01 13:11] VITALS: BP 133/59
--- NOTE | 2020-09-01 13:11 | ER RDC ASSESSMENT REPORT ---
Intake - In the Last 14 days Have you traveled outside [place]?: No Have you been in close contact with someone CONFIRMED: Yes Worked in Healthcare?: No - Symptoms Subjective Fever([place] feverish): No Chills: No Muscule Aches: No Runny Nose: No Sore Throat: No Cough (New or worsening chronic cough): No Shortness of breath: No Nausea or Vomiting: No Headache: No Abdominal Pain: No Diarrhea(3 or more loose stools in last 24 hours): No - Do you have any of the following Chronic lung disease: Asthma or emphysema or COPD: Yes Chronic Lung Disease Comment: History of COPD Cystic Fibrosis: No Diabetes: Yes Diabetes Comment: Type 2 diabetes High Blood Pressure: Yes Cardiovascular Disease: Yes Chronic Kidney Disease: No Chronic Liver Disease: No Chronic blood disorder like Sickle Cell Disease: No Weak immune system due to disease or medication: No Neurologic condition that limits movement: No Developmental delay - Moderate to Severe: No Recent (within past 2 weeks) or current : No Morbid Obesity (>100 pounds over ideal weight): No Obesity Comment: Height 6 feet 1 inches weight 260 pounds Other Comment: Struve bladder cancer - Objective Temperature: 97.6 F Pulse Rate: 58 Respiratory Rate: 18 Blood Pressure: 133/59 O2 Sat by Pulse Oximetry: 93 Objective: Given above, testing performed: If Testing Performed: Test Specimen Type Sent to General - General Information source: Patient Notes: Patient here at [facility] for Covid testing patient reports was exposed to someone, positive for Covid at a cardiology appointment. Patient denies any known symptoms at this point. Patient sees Dr. Gonzalez as a primary care provider and instructed to come get tested for Covid. - Related Data Allergies/Adverse Reactions: No Known Allergies Allergy (Verified 03/30/17 00:18) Past Medical History - General Information source: Patient - Social History Smoking Status: Former Smoker - quit in 1988 Family History: Reviewed & Not Pertinent - Past Medical History Cardiac Medical History: Reports: Hx Coronary Artery Disease, Hx Hypercholesterolemia, Hx Hypertension Denies: Hx Atrial Fibrillation, Hx Congestive Heart Failure, Hx Heart Attack, Hx Peripheral Vascular Disease, Hx Pulmonary Embolism, Hx Heart Murmur Pulmonary Medical History: Denies: Hx Asthma, Hx Bronchitis, Hx COPD, Hx Pneumonia, Hx Respiratory Failure, Hx Sleep Apnea, Hx Tuberculosis Neurological Medical History: Reports: Hx Cerebrovascular Accident - Right-sided hemiaplagia. Denies: Hx Seizures Endocrine Medical History: Reports: Hx Diabetes Mellitus Type 2. Denies: Hx Graves' Disease, Hx Hyperthyroidism, Hx Hypothyroidism Renal/ Medical History: Denies: Hx Peritoneal Dialysis Malignancy Medical History: Denies Hx Lung Cancer GI Medical History: Reports: Hx Gastroesophageal Reflux Disease, Hx Hiatal Hernia, Hx Ulcer. Denies: Hx Crohn's Disease, Hx Hepatitis, Hx Irritable Bowel, Hx Liver Failure, Hx Pancreatitis Musculoskeletal Medical History: Reports Hx Arthritis, Denies Hx Fibromyalgia, Denies Hx Muscular Dystrophy, Denies Hx Systemic Lupus Erythematosus Psychiatric Medical History: Reports: Hx Depression, Hx Post Traumatic Stress Disorder Denies: Hx Bipolar Disorder, Hx Schizophrenia Traumatic Medical History: Reports: Hx Fractures - RT THIRD TOE Infectious Medical History: Denies: Hx Hepatitis Past Surgical History: Reports: Hx Cardiac Catheterization, Hx Cardiac Surgery - cabg, stents, Hx Coronary Artery Bypass Graft - QUAD, Hx Open Heart Surgery - 1988, Hx Orthopedic Surgery - anterior neck dic repair , lower back lumber, Hx Tonsillectomy. Denies: Hx Appendectomy, Hx Bowel Surgery, Hx Cholecystectomy, Hx Colostomy, Hx Gastric Bypass Surgery, Hx Herniorrhaphy, Hx Pacemaker Physical Exam - General General appearance: Appears well, Alert In distress: None Notes: PHYSICAL EXAMINATION: GENERAL: Well-appearing and in no acute distress. HEAD: Atraumatic, normocephalic. EYES: sclera anicteric, conjunctiva are normal. ENT: nares patent. Moist mucous membranes. NECK: Normal range of motion, supple without lymphadenopathy LUNGS: CTAB and equal. No wheezes rales or rhonchi. Respirations even and unlabored lung sounds clear. HEART: Regular rate and rhythm without murmurs ABDOMEN: Soft, nontender, normal bowel sounds, no guarding. EXTREMITIES: Normal range of motion, no pitting edema. No cyanosis. NEUROLOGICAL: Cranial nerves grossly intact. Normal speech. Normal gait. PSYCH: Normal mood, normal affect. SKIN: Warm, Dry, normal turgor, no rashes or lesions noted Diagnostic Results Laboratory Results: Pending Covid testing results. Patient provided instructions regarding Covid to include: As a person under investigation for Covid 19, the [facility], division of public health advises you to adhere to the following guidance until your test results are reported to you. If your test result is positive, you will receive additional information from your provider and your local health department at that time. Remain at home until you are cleared by the health provider or public health authorities. Keep a log of visitors to your home, notify any visitors to your home of your isolation status. If you plan to move to a new address or leave the county, notify the local health department in your County. Call your doctor or seek care if you have an urgent medical need. Before seeking medical care, call ahead to get instructions from the provider before arriving at the medical office clinic or hospital. Notify them that you are being tested for the virus that causes Covid 19 so that arrangements can be made, as necessary, to prevent transmission to others in the healthcare setting. Next, notify the local health department in your county. If a medical emergency arises and you need to call 911, inform the first responders that you are being tested for the virus that causes Covid 19. Next, notify the local health department in your county. Patient Education/Counseling Counseling/Education: Patient presents with upper respiratory symptoms worrisome for possible Covid 19. Patient does not have emergency worring symptoms such as difficulty breathing, shortness of breath, chest pain, pressure, confusion or cyanosis. Patient appears suitable for discharge. Patient instructed to follow-up with PCP Dr. Gonzalez. Patient's vital signs are stable and patient is nontoxic in appearance. Good return precautions have been discussed with patient, patient verbalized understanding and is agreeable with discharge plan of care at this time. RDC Discharge - Discharge Clinical Impression: Encounter for screening laboratory testing for COVID-19 virus in asymptomatic patient Condition: Stable Disposition: Home; Selfcare
== END ==
LOC: RDC 12:08
PROVIDERS: ATTEND Nurse Practitioner Family
DX: Z20.828 Contact with and (suspected) exposure to other viral communicable diseases (principal)
CPT/HCPCS: U0003; C9803; 87635; 99201; 99211